=== PATIENT | female | born 1985 | race Caucasian/White ===

== ENCOUNTER 2024-04-03 03:06 | Observation (INO) ==
[2024-04-03] MEDS: Lactated Ringers 1000 ml BAG 1,000 ML IV ONE (06:38)
[2024-04-03] MEDS: Enoxaparin 40 MG/0.4 ML SYR SUBCUT SCH (06:41)
[2024-04-03] MEDS ORDERED: Nicotine GUM 4MG FRUIT FLAVOR PO PRN (11:51)
[2024-04-03] MEDS: Nicotine PATCH 21 MG/24 HR PATCH TRANSDERM SCH (12:39)
[2024-04-03] MEDS ORDERED: Ondansetron 4 mg VIAL 2 MG/ML 2 ml VIAL IV PRN (13:53)
[2024-04-03] MEDS: DULoxetine DR 20 mg CAP PO SCH (14:27)
[2024-04-03 14:32] VITALS: BP 114/78
== END 2024-04-03 17:10 | disposition home or self-care (01) ==
LOC: ED 03:06 → EDHOLD 03:06 → MEDTELE 11:32
PROVIDERS: ADMIT Hospitalist; ATTEND Hospitalist